=== PATIENT | male | born 1950 | race Caucasian/White ===

== ENCOUNTER 2022-01-18 02:28 | Emergency (ER) | payer MEDICARE ==
[~2022-01-18] VITALS: Ht 172.7 cm; Wt 59.0 kg
[2022-01-18] MEDS ORDERED: NO HOME MEDS (02:37)
[2022-01-18] MEDS: acetaminophen 325mg tablet PO ONE (03:19)
[2022-01-18] MEDS: morphine 4 MG/ML inj SYRINge IV ONE (03:19)
[2022-01-18] MEDS: normal saline 1000ML IV soln IVB ONE (03:19)
[2022-01-18] MEDS: ondansetron/PF 4mg/2ml inj IV ONE (03:19)
[2022-01-18 03:47] LABS: BASOPHILS # (AUTO) 0.1 X10'3 (0-0.2); BASOPHILS % (AUTO) 0.4 % (0-1); EOSINOPHILS % (AUTO) 0.2 % (0-6); HEMATOCRIT 38.5 % (42.0-52.0); LYMPHOCYTES # (AUTO) 0.9 X10'3 (1.1-4.8); LYMPHOCYTES % (AUTO) 6.6 % (21-51); MEAN CORPUSCULAR HEMOGLOBIN 32.1 PG (27.0-31.0); MEAN CORPUSCULAR HGB CONC 33.8 g/dL (33.0-36.5); MEAN CORPUSCULAR VOLUME 94.9 FL (78-98); MEAN PLATELET VOLUME 8.8 FL (7.4-10.4); MONOCYTES # (AUTO) 1.3 X10'3 (0-0.9); MONOCYTES % (AUTO) 9.1 % (2-12); NEUTROPHILS # (AUTO) 11.6 X10'3 (1.8-7.7); NEUTROPHILS % (AUTO) 83.7 % (42-75); PLATELET COUNT 323 X10'3 (140-440); RED BLOOD COUNT 4.06 X10'6 (4.70-6.10); RED CELL DISTRIBUTION WIDTH 13.3 % (11.5-14.5); WHITE BLOOD COUNT 13.8 X10'3 (4.5-11.0)
[2022-01-18 03:51] LABS: ALANINE AMINOTRANSFERASE 50 U/L (12-78); ALBUMIN 3.3 G/DL (3.4-5.0); ALBUMIN/GLOBULIN RATIO 0.7 (1.1-1.5); ALKALINE PHOSPHATASE 136 IU/L (46-116); ANION GAP 7 (8-16); ASPARTATE AMINO TRANSFERASE 26 U/L (10-37); BILIRUBIN,TOTAL 0.8 MG/DL (0.1-1.0); BLOOD UREA NITROGEN 9 MG/DL (7-18); BUN/CREATININE RATIO 8.5 (5.4-32.0); CHLORIDE 99 MMOL/L (99-107); CREATININE 1.06 MG/DL (0.60-1.10); GLUCOSE 140 MG/DL (70-104); LIPASE < 50 U/L (73-393); POTASSIUM 4.3 MMOL/L (3.5-5.1); SODIUM 134 MMOL/L (135-145); eGFR 69 ML/MIN
[2022-01-18] MEDS ORDERED: iohexol 300mg/ml 100ml inj. ONE (04:02)
[2022-01-18 06:05] VITALS: BP 102/75
== END 2022-01-18 06:07 | disposition home or self-care (01) ==
LOC: ER 02:29
DX: R10.31 Right lower quadrant pain (principal); Z98.890 Other specified postprocedural states
CPT/HCPCS: 36415; 74177; 80053; 83690; 85025; 96361; 96374; 96375; 99285; J2270; J2405; J3490; J7030; Q9967

== ENCOUNTER 2022-11-18 11:17 | Inpatient (IN) | payer OTHER, MEDICARE ==
[~2022-11-18] VITALS: Ht 172.7 cm; Wt 48.4 kg
[~2022-11-18 11:17] MED LIST: NO HOME MEDS
[2022-11-18 11:59] LABS: BASOPHILS # (AUTO) 0.1 X10'3 (0-0.2); BASOPHILS % (AUTO) 0.3 % (0-1); EOSINOPHILS % (AUTO) 0 % (0-6); HEMATOCRIT 35.1 % (42.0-52.0); HEMOGLOBIN 11.8 g/dl (14.0-17.9); LYMPHOCYTES # (AUTO) 0.4 X10'3 (1.1-4.8); LYMPHOCYTES % (AUTO) 2.7 % (21-51); MEAN CORPUSCULAR HEMOGLOBIN 31.4 PG (27.0-31.0); MEAN CORPUSCULAR HGB CONC 33.6 g/dL (33.0-36.5); MEAN CORPUSCULAR VOLUME 93.3 FL (78-98); MEAN PLATELET VOLUME 8.2 FL (7.4-10.4); MONOCYTES # (AUTO) 0.9 X10'3 (0-0.9); MONOCYTES % (AUTO) 5.9 % (2-12); NEUTROPHILS # (AUTO) 14.3 X10'3 (1.8-7.7); NEUTROPHILS % (AUTO) 91.1 % (42-75); PLATELET COUNT 297 X10'3 (140-440); RED BLOOD COUNT 3.76 X10'6 (4.70-6.10); RED CELL DISTRIBUTION WIDTH 14.4 % (11.5-14.5); WHITE BLOOD COUNT 15.7 X10'3 (4.5-11.0)
[2022-11-18 12:04] LABS: BILIRUBIN,URINE MODERATE (Neg); CLARITY,URINE SLIGHTLY CLOUDY (Clear); GLUCOSE, URINE NEGATIVE (Neg); KETONES,URINE 15 mg/dl (Neg); LEUKOCYTE ESTERASE ,URINE NEGATIVE (Neg); NITRITES, URINE NEGATIVE (Neg); OCCULT BLOOD,URINE TRACE-INTACT (Neg); PROTEIN,URINE TRACE mg/dl (Neg)
[2022-11-18 12:08] LABS: ALANINE AMINOTRANSFERASE 84 U/L (12-78); ALBUMIN 3.5 G/DL (3.4-5.0); ALBUMIN/GLOBULIN RATIO 0.7 (1.1-1.5); ALKALINE PHOSPHATASE 316 IU/L (46-116); ANION GAP 7 (8-16); ASPARTATE AMINO TRANSFERASE 84 U/L (10-37); BILIRUBIN,TOTAL 2.9 MG/DL (0.1-1.0); BLOOD UREA NITROGEN 10 MG/DL (7-18); BUN/CREATININE RATIO 9.8 (10.0-20.0); CALCIUM 9.7 MG/DL (8.5-10.1); CHLORIDE 98 MMOL/L (99-107); CREATININE 1.02 MG/DL (0.60-1.10); GLUCOSE 163 MG/DL (70-104); POTASSIUM 4.3 MMOL/L (3.5-5.1); SODIUM 130 MMOL/L (135-145); TOTAL CARBON DIOXIDE 25.1 MMOL/L (24-32); TOTAL PROTEIN 8.6 G/DL (6.4-8.2); eCRCL 46 ML/MIN; eGFR 72 ML/MIN
[2022-11-18 12:21] LABS: COLOR,URINE DARK YELLOW (Yellow); UA COLLECTION TYPE CLN CATCH MIDSTREAM
[2022-11-18 12:23] LABS: BACTERIA,URINE FEW /HPF (Neg); MUCUS STRANDS MODERATE /LPF (Neg); RBC,URINE 0-2 /HPF (0-2); WBC,URINE 0-4 /HPF (0-4)
[2022-11-18 12:24] LABS: SQUAMOUS EPITHELIAL CELL,UR MODERATE /LPF (FEW)
[2022-11-18 12:55] LABS: LIPASE 14485 U/L (73-393)
[2022-11-18] MEDS ORDERED: ringers solution, lacted 1,000 ML IV ONE ×2 (18:20)
[2022-11-18] MEDS ORDERED: ondansetron/PF 4mg/2ml inj IV ONE (18:25)
[2022-11-18] MEDS ORDERED: HYDROmorphone 1 mg/ml syringe IV ONE (18:25)
[2022-11-18] MEDS ORDERED: iohexol 300mg/ml 100ml inj. ONE (18:34)
[2022-11-19] MEDS ORDERED: famotidine/PF 10 mg/ml inj IV ONE (03:05)
[2022-11-19] MEDS ORDERED: piperacillin/tazo 3.375gm/50ml 50 ML IV SCH (03:10)
[2022-11-19] MEDS ORDERED: piperacillin/tazo 3.375gm/50ml 50 ML IV ONE (03:10)
[2022-11-19] MEDS ORDERED: morphine 2 MG/ML inj. syringe IV PRN ×2 (03:45)
[2022-11-19] MEDS ORDERED: mag hydrox/Alum hydrox/simeth 30ml oral suspension PO PRN (03:45)
[2022-11-19] MEDS: normal saline 1000ml 1,000 ML IV SCH ×3 (03:45→19:57)
[2022-11-19] MEDS ORDERED: ondansetron/PF 4mg/2ml inj IV PRN (03:45)
[2022-11-19] MEDS ORDERED: magnesium 2GM in 50ml NS 50 ML IV PRN (03:45)
[2022-11-19] MEDS ORDERED: potassium Cl 40MEQ/1/2NS 520ml 520 ML IV PRN (03:45)
[2022-11-19] MEDS ORDERED: acetaminophen 325mg tablet PO PRN (03:45)
[2022-11-19] MEDS ORDERED: magnesium 4gm in 100ml NS 100 ML IV PRN (03:45)
[2022-11-19] MEDS ORDERED: potassium Cl 20 mEq SR tablet PO PRN (03:45)
[2022-11-19] MEDS ORDERED: magnesium hydroxide 30ml (MOM) UD suspension PO PRN (03:45)
[2022-11-19] MEDS ORDERED: magnesium Cl slow-release 64mg tablet PO PRN (03:45)
[2022-11-19] MEDS: K and/or MAG REPLACEMENT MC SCH ×2 (08:00→20:00)
[2022-11-19] MEDS: docusate sod 100mg capsule PO SCH ×2 (08:10→20:03)
[2022-11-19 08:13] LABS: MAGNESIUM 1.6 MG/DL (1.5-2.4); POTASSIUM 3.6 MMOL/L (3.5-5.1)
--- NOTE | 2022-11-19 08:44 | NUR ---
MRI CALLED AND WANTED MORE INFORMATION ON THE PT'S SHUNT. PT DOESNT KNOW MUCH ABOUT IT. PT SAID IT WAS DONE HERE, PT STATES IT WAS DONE 45 YEARS AGO. FORWARDED THE MESSAGE TO MRI. MRI SAID THAT THEY WOULD LOOK MORE INTO IT ON THERE END.
[2022-11-19 11:30] VITALS: BP 104/56; PULSE 59; RESP 15; TEMP 97.7; O2SAT 96
--- NOTE | 2022-11-19 12:23 | NUR ---
Malnutrition consult: Pt reports 2-13 lb wt loss with decreased appetite/PO intake per malnutrition risk screen with RN. Current BMI is 16.2 using scaled weight of 48.4 kg. Per H&P pt presented with c/o abdominal pain and admit for gall stone pancreatitis, currently NPO for possible cholecystectomy. Pt just admitted so information in EMR is limited at this time. No edema per H&P. Further assessment of nutrition status pending at this time until more information is able to be obtained. Addendum: 11/19/22 at [address] Amended: Links added.
[2022-11-19] MEDS: piperacillin/tazo 3.375gm/50ml 50 ML IV SCH ×2 (12:51→19:53)
[2022-11-19 18:00] VITALS: BP 121/66; PULSE 62; RESP 18; TEMP 97.5; O2SAT 99
--- NOTE | 2022-11-19 18:38 | NUR ---
Problems reprioritized. Patient report given, questions answered & plan of care reviewed with HANNAH Galeano.
--- NOTE | 2022-11-19 18:40 | NUR ---
Patient in room ORTHO 4012. I have received report from MARILY PARK and had the opportunity to ask questions and assume patient care.
[2022-11-19 20:00] VITALS: RESP 18; O2SAT 99
[2022-11-19 22:00] VITALS: BP 108/54; PULSE 86; RESP 16; TEMP 98; O2SAT 97
[2022-11-20] MEDS: piperacillin/tazo 3.375gm/50ml 50 ML IV SCH ×3 (03:40→19:23)
[2022-11-20 06:00] VITALS: BP 121/66; PULSE 62; RESP 18; TEMP 97.5; O2SAT 99
--- NOTE | 2022-11-20 06:35 | NUR ---
Problems reprioritized. Patient report given, questions answered & plan of care reviewed with MARILY YOUNG.
--- NOTE | 2022-11-20 06:39 | NUR ---
Patient in room ORTHO 4012. I have received report from HANNAH Galeano and had the opportunity to ask questions and assume patient care.
[2022-11-20 07:06] LABS: BASOPHILS % (AUTO) 0.2 % (0-1); EOSINOPHILS # (AUTO) 0.1 X10'3 (0-0.9); EOSINOPHILS % (AUTO) 0.6 % (0-6); HEMATOCRIT 26.8 % (42.0-52.0); HEMOGLOBIN 8.9 g/dl (14.0-17.9); LYMPHOCYTES # (AUTO) 0.9 X10'3 (1.1-4.8); LYMPHOCYTES % (AUTO) 7.7 % (21-51); MEAN CORPUSCULAR HEMOGLOBIN 31.5 PG (27.0-31.0); MEAN CORPUSCULAR HGB CONC 33.4 g/dL (33.0-36.5); MEAN CORPUSCULAR VOLUME 94.4 FL (78-98); MEAN PLATELET VOLUME 9.2 FL (7.4-10.4); MONOCYTES % (AUTO) 8.1 % (2-12); NEUTROPHILS # (AUTO) 9.8 X10'3 (1.8-7.7); NEUTROPHILS % (AUTO) 83.4 % (42-75); PLATELET COUNT 175 X10'3 (140-440); RED BLOOD COUNT 2.84 X10'6 (4.70-6.10); RED CELL DISTRIBUTION WIDTH 14.2 % (11.5-14.5); WHITE BLOOD COUNT 11.7 X10'3 (4.5-11.0)
[2022-11-20 07:35] LABS: ALANINE AMINOTRANSFERASE 43 U/L (12-78); ALBUMIN 2.3 G/DL (3.4-5.0); ALBUMIN/GLOBULIN RATIO 0.6 (1.1-1.5); ALKALINE PHOSPHATASE 139 IU/L (46-116); ANION GAP 12 (8-16); ASPARTATE AMINO TRANSFERASE 29 U/L (10-37); BILIRUBIN,TOTAL 0.9 MG/DL (0.1-1.0); BLOOD UREA NITROGEN 14 MG/DL (7-18); BUN/CREATININE RATIO 14.3 (10.0-20.0); CALCIUM 8.3 MG/DL (8.5-10.1); CHLORIDE 102 MMOL/L (99-107); CREATININE 0.98 MG/DL (0.60-1.10); LIPASE 979 U/L (73-393); MAGNESIUM 1.7 MG/DL (1.5-2.4); POTASSIUM 3.3 MMOL/L (3.5-5.1); SODIUM 134 MMOL/L (135-145); TOTAL CARBON DIOXIDE 20.2 MMOL/L (24-32); TOTAL PROTEIN 6.3 G/DL (6.4-8.2); eCRCL 48 ML/MIN; eGFR 76 ML/MIN
[2022-11-20 07:39] LABS: GLUCOSE 39 MG/DL (70-104)
[2022-11-20] MEDS ORDERED: DEXTROSE 15 GM of carb/4 tabs (each vial/BOTTLE has 4 tablets) PO PRN ×2 (07:45)
[2022-11-20] MEDS ORDERED: dextrose 5%-1/4 normal saline 1,000 ML IV SCH (07:45)
[2022-11-20] MEDS ORDERED: glucagon, human recombinant 1mg kit SUBCUT PRN (07:45)
[2022-11-20] MEDS ORDERED: dextrose 50%-water 50ml dispensing syringe IV PRN ×2 (07:45)
[2022-11-20 08:00] VITALS: RESP 18; O2SAT 100
[2022-11-20] MEDS: K and/or MAG REPLACEMENT MC SCH ×2 (08:00→20:00)
[2022-11-20] MEDS: docusate sod 100mg capsule PO SCH ×2 (08:05→19:53)
[2022-11-20] MEDS: dextrose 5%-1/2 normal saline 1,000 ML IV SCH ×2 (08:06→19:53)
[2022-11-20 08:15] LABS: BILIRUBIN,DIRECT 0.4 MG/DL (0-0.3)
[2022-11-20 10:00] VITALS: BP 120/50; PULSE 46; RESP 14; TEMP 97.9; O2SAT 99
--- NOTE | 2022-11-20 13:15 | NUR ---
F/u for malnutrition consult: Pt seen at bedside, reports UBW 120 lbs and states he believes he has lost about four lbs in the last week or so stating ABW is probably 116 lbs, though this is not scaled. Current documented wt is 106 lbs though pt does not actually appear to be this thin. Pt reports no PO intake x 4 days for unknown reasons. Pt remains NPO at this time, per SALES REPRESENTATIVE [employer] physician is going to consult with surgeon regarding possible surgery. Pt endorsing a great appetite stating he is really hungry. No documented decrease in muscle strength or edema. Pt currently lacks a minimum of two criteria for malnutrition. Pt denies food allergies, food preferences, or difficulty chewing or swallowing. Recommend advancing diet MARIO if pt not going to OR, d/w SALES REPRESENTATIVE [employer]. Pt provided with RD contact information and encouraged to reach out if needed. Will continue to follow and monitor s/s of malnutrition and need for nutrition intervention. Addendum: 11/20/22 at [address] Amended: Links added.
--- NOTE | 2022-11-20 14:42 | NUR ---
PRESSURE WASHER documentation: I have reviewed and agree with all interventions, assessments performed and documented by Uli Mattson LVN.
[2022-11-20] MEDS: potassium Cl 20 mEq SR tablet PO PRN ×2 (17:40→22:19)
[2022-11-20 18:00] VITALS: BP 116/52; PULSE 54; RESP 14; TEMP 97.8; O2SAT 100
--- NOTE | 2022-11-20 18:33 | NUR ---
Problems reprioritized. Patient report given, questions answered & plan of care reviewed with XAVIER Montano.
[2022-11-20 22:00] VITALS: BP 110/58; PULSE 58; RESP 15; TEMP 98.3; O2SAT 98
[2022-11-21] VITALS (7 sets, daily range): BP systolic 103–125; BP diastolic 54–65; PULSE 48–56; RESP 16–18; TEMP 97.9–98.4; O2SAT 96–100
--- NOTE | 2022-11-21 02:20 | NUR ---
ENGINEER TECHNICAL STAFF documentation: I have reviewed and agree with assessment performed and documented by DEANNE Maravilla
[2022-11-21] MEDS: potassium Cl 20 mEq SR tablet PO PRN (02:36)
[2022-11-21] MEDS: piperacillin/tazo 3.375gm/50ml 50 ML IV SCH ×3 (03:57→20:58)
--- NOTE | 2022-11-21 06:36 | NUR ---
I have received report from Dusty PARK and had the opportunity to ask questions and assume patient care.
[2022-11-21] MEDS: docusate sod 100mg capsule PO SCH ×2 (07:48→20:00)
[2022-11-21] MEDS: K and/or MAG REPLACEMENT MC SCH ×2 (08:00→20:00)
--- NOTE | 2022-11-21 17:17 | NUR ---
Student documentation reviewed by instructor.
[2022-11-21] MEDS: dextrose 5%-1/2 normal saline 1,000 ML IV SCH (17:31)
[2022-11-22] VITALS (16 sets, daily range): BP systolic 110–157; BP diastolic 56–94; PULSE 50–83; RESP 15–18; TEMP 97.9–98.7; O2SAT 90–100
[2022-11-22] MEDS: piperacillin/tazo 3.375gm/50ml 50 ML IV SCH ×3 (03:44→22:14)
--- NOTE | 2022-11-22 06:32 | NUR ---
Report received from NOC Shift.
--- NOTE | 2022-11-22 07:39 | NUR ---
Dr Silveira rounded and stated pt can have a regular breakfast this morning then NPO d/t surgery will be @ approx 1700 today. Orders placed in MT.
[2022-11-22] MEDS: docusate sod 100mg capsule PO SCH ×2 (07:51→20:00)
[2022-11-22] MEDS: K and/or MAG REPLACEMENT MC SCH ×2 (08:00→20:00)
[2022-11-22 09:52] LABS: PROTHROMBIN TIME 10.7 SECONDS (9.0-12.0)
[2022-11-22 09:59] LABS: ALBUMIN 2.4 G/DL (3.4-5.0); ALBUMIN/GLOBULIN RATIO 0.6 (1.1-1.5); ALKALINE PHOSPHATASE 112 IU/L (46-116); BLOOD UREA NITROGEN 2 MG/DL (7-18); CALCIUM 8.6 MG/DL (8.5-10.1); CHLORIDE 100 MMOL/L (99-107); CREATININE 1.02 MG/DL (0.60-1.10); PRE OP ALT 33 U/L (30-65); PRE OP ANION GAP 2 (8-16); PRE OP AST 14 U/L (10-37); PRE OP BILIRUB, TOTAL 0.4 MG/DL (0.0-1.0); PRE OP GLUCOSE 90 MG/DL (70-104); PRE OP POTASSIUM 3.5 MMOL/L (3.4-5.1); TOTAL CARBON DIOXIDE 28.2 MMOL/L (24-32); TOTAL PROTEIN 6.7 G/DL (6.4-8.2); eCRCL 46 ML/MIN; eGFR 72 ML/MIN
[2022-11-22 10:01] LABS: PRE OP SODIUM 130 MMOL/L (135-145)
[2022-11-22] MEDS: normal saline 1000ml 1,000 ML IV SCH ×2 (10:56→20:20)
[2022-11-22] MEDS ORDERED: INDOCYANINE GREEN 25 MG/10 ML VIAL IV ONE (15:00)
--- NOTE | 2022-11-22 16:26 | NUR ---
Patient disconnected himself from his IVF and did not let staff know. IVFs were found dripping on the floor from the IV pole. Patient states "I may have disconnected myself". Educated patient not to disconnect his fluids going forward.
[2022-11-22] MEDS ORDERED: ondansetron/PF 4mg/2ml inj IV PRN (17:50)
[2022-11-22] MEDS ORDERED: HYDROmorphone/PF 0.2 MG/ML SYRINGE IV PRN ×2 (17:50→20:35)
[2022-11-22] MEDS ORDERED: normal saline 1000ml 1,000 ML IV ONE (17:50)
[2022-11-22] MEDS ORDERED: morphine 2 MG/ML inj. syringe IV PRN ×2 (17:50→20:35)
[2022-11-22] MEDS ORDERED: fentaNYL/PF 50MCG/1 ML 2ML syringe ONE (18:01)
--- NOTE | 2022-11-22 18:02 | NUR ---
Patient off the unit to OR
[2022-11-22] MEDS ORDERED: propofol inj 20 ML IV ONE (18:03)
[2022-11-22] MEDS ORDERED: LIDOcaine 2% (20mg/ml) 5ml vial ONE (18:03)
[2022-11-22] MEDS ORDERED: BUPIVAcaine/PF 2.5 mg/ml (0.25%) 30ml vial ONE (18:14)
[2022-11-22] MEDS ORDERED: LIDOcaine 1% 30ml preserv. free vial ONE (18:14)
--- NOTE | 2022-11-22 18:14 | NUR ---
Report given to Lucretia YOUNG NOC shift.
--- NOTE | 2022-11-22 18:32 | NUR ---
Patient in room ORTH[facility] 4011. I have received report from HANNAH Bellamy and had the opportunity to ask questions and assume patient care.
[2022-11-22] MEDS ORDERED: sevoflurane 250ml liquid IH ONE (18:40)
[2022-11-22] MEDS ORDERED: cefazolin 2gm/D5W 100ml IV.soln IV ONE (18:40)
[2022-11-22] MEDS ORDERED: BUPIVAcaine/PF 2.5 mg/ml (0.25%) 30ml vial IJ ONE (19:00)
[2022-11-22] MEDS ORDERED: LIDOcaine 1% 30ml preserv. free vial IJ ONE (19:00)
[2022-11-22] MEDS ORDERED: sugammadex 200mg/2ml injection IV ONE (19:02)
[2022-11-22] MEDS ORDERED: rocuronium 10mg/ml inj IV ONE (19:26)
[2022-11-22] MEDS ORDERED: ondansetron/PF 4mg/2ml inj ONE (19:26)
[2022-11-22] MEDS ORDERED: dexamethasone sod phosphate 4mg/ml inj. ONE (19:26)
[2022-11-22] MEDS ORDERED: naloxone 0.4 mg/ml inj IV PRN (20:20)
[2022-11-22] MEDS: HYDROmorph/NS 0.2 mg/ml PCA 100 ML IV SCH ×3 (20:58→23:00)
--- NOTE | 2022-11-22 21:14 | NUR ---
Received from OR via , accompanied by Anesthesiologist DR SABILLON and report given by Anesthesiolgist. VSS. ON MASK AT 10 LITERS. IV 20G IN R HAND. ISLAND MID ADB WITH TAMRA DRAIN ON R SIDE
--- NOTE | 2022-11-22 21:14 | NUR ---
MEETS DISCHARGE CRITERIA. IV INTACT. CALLED REPORT TO FRANCOIS YOUNG TOOK TOOK PATIENT TO FLOOR, NURSE AT BEDSIDE.
--- NOTE | 2022-11-22 21:15 | NUR ---
Patient in room ORTH[facility] 4011. I have received report from ARPITA KENNEL MANAGER DOG TRACK and had the opportunity to ask questions and assume patient care.
[2022-11-22 21:22] LABS: ISTAT ANION GAP 15 (8-12); ISTAT BUN < 3 mg/dL (7-18); ISTAT CL 99 mmol/L (99-107); ISTAT CREATININE 0.9 mg/dL (0.8-1.3); ISTAT GLUCOSE 133 mg/dL (70-104); ISTAT HGB 13.3 g/dl (14.0-17.9); ISTAT Hct 39 %PCV (42-52); ISTAT IONIZED CALCIUM 1.18 mmol/L (1.03-1.32); ISTAT K 3.3 mmol/L (3.5-5.1); ISTAT NA 137 mmol/L (135-145); ISTAT TOTAL CO2 23 mmol/L (24-32); ISTAT eGFR 83 ML/MIN; POC BUN/CREATININE RATIO 3.3 (5.4-32.0)
--- NOTE | 2022-11-22 22:00 | NUR ---
PT. PULLED OFF DRESSING. APPLIED NEW DRESSING AND EDUCATED PT ON IMPORTANCE OF LEAVING DRESSING INTACT.
[2022-11-23] VITALS (8 sets, daily range): BP systolic 124–157; BP diastolic 64–80; PULSE 66–74; RESP 15–20; TEMP 98.2–98.6; O2SAT 92–96
[2022-11-23] MEDS: HYDROmorph/NS 0.2 mg/ml PCA 100 ML IV SCH ×6 (01:00→11:00)
--- NOTE | 2022-11-23 05:05 | NUR ---
PT. PULLED OFF DRESSING. APPLIED NEW DRESSING AND EDUCATED PT ON IMPORTANCE OF LEAVING DRESSING ALONE. WILL CONTINUE TO MONITOR.
--- NOTE | 2022-11-23 06:16 | NUR ---
Problems reprioritized. Patient report given, questions answered & plan of care reviewed with HANNAH AMADOR.
[2022-11-23] MEDS: normal saline 1000ml 1,000 ML IV SCH ×2 (06:45→16:40)
[2022-11-23] MEDS: piperacillin/tazo 3.375gm/50ml 50 ML IV SCH ×3 (07:00→16:36)
[2022-11-23] MEDS: K and/or MAG REPLACEMENT MC SCH ×3 (08:00→20:00)
[2022-11-23] MEDS ORDERED: docusate sod 100mg capsule PO SCH (08:00)
[2022-11-23] MEDS ORDERED: sennosides/docusate sodium tablet PO SCH (08:00)
--- NOTE | 2022-11-23 08:15 | NUR ---
attempted to call dr hutchins about abnormal k, new labs, and double stool softener orders. no response.
--- NOTE | 2022-11-23 08:20 | NUR ---
waiting on pharmacy to send up Zosyn to be hung
[2022-11-23] MEDS ORDERED: potassium Cl 20 mEq SR tablet PO PRN (08:30)
[2022-11-23] MEDS ORDERED: potassium Cl 40MEQ/1/2NS 520ml 520 ML IV PRN ×2 (08:30)
--- NOTE | 2022-11-23 09:45 | NUR ---
pt iv went bad unable to start zosyn right now
[2022-11-23 09:49] LABS: BASOPHILS % (AUTO) 0.1 % (0-1); EOSINOPHILS % (AUTO) 0 % (0-6); HEMOGLOBIN 9.9 g/dl (14.0-17.9); LYMPHOCYTES # (AUTO) 0.7 X10'3 (1.1-4.8); MEAN CORPUSCULAR HEMOGLOBIN 31.4 PG (27.0-31.0); PLATELET COUNT 259 X10'3 (140-440); RED CELL DISTRIBUTION WIDTH 13.8 % (11.5-14.5)
[2022-11-23 09:52] LABS: HEMATOCRIT 29.4 % (42.0-52.0); LYMPHOCYTES % (AUTO) 6.1 % (21-51); MEAN CORPUSCULAR HGB CONC 33.6 g/dL (33.0-36.5); MEAN CORPUSCULAR VOLUME 93.3 FL (78-98); MONOCYTES # (AUTO) 1.1 X10'3 (0-0.9); NEUTROPHILS # (AUTO) 9.5 X10'3 (1.8-7.7); NEUTROPHILS % (AUTO) 83.8 % (42-75); RED BLOOD COUNT 3.15 X10'6 (4.70-6.10); WHITE BLOOD COUNT 11.3 X10'3 (4.5-11.0)
[2022-11-23] MEDS: docusate sod 100mg capsule PO SCH ×2 (09:52→20:46)
[2022-11-23 10:10] LABS: ALANINE AMINOTRANSFERASE 30 U/L (12-78); ALBUMIN 2.4 G/DL (3.4-5.0); ALBUMIN/GLOBULIN RATIO 0.5 (1.1-1.5); ALKALINE PHOSPHATASE 100 IU/L (46-116); ANION GAP 5 (8-16); ASPARTATE AMINO TRANSFERASE 25 U/L (10-37); BILIRUBIN,TOTAL 0.4 MG/DL (0.1-1.0); BLOOD UREA NITROGEN 5 MG/DL (7-18); CALCIUM 8.4 MG/DL (8.5-10.1); CHLORIDE 99 MMOL/L (99-107); GLUCOSE 100 MG/DL (70-104); POTASSIUM 3.3 MMOL/L (3.5-5.1); SODIUM 131 MMOL/L (135-145); TOTAL CARBON DIOXIDE 27.2 MMOL/L (24-32); TOTAL PROTEIN 6.8 G/DL (6.4-8.2); eCRCL 47 ML/MIN; eGFR 74 ML/MIN
[2022-11-23] MEDS: potassium Cl 20 mEq SR tablet PO PRN ×3 (10:23→20:46)
--- NOTE | 2022-11-23 11:00 | NUR ---
still unable to get an iv having another nurse try. pharmacy stated dose would need to be skipped since dose will be given too late and go on to give next dose at 1500.
[2022-11-23] MEDS ORDERED: PCA WASTE DOCUMENTATION 1 MG ML MC SCH (11:40)
--- NOTE | 2022-11-23 12:00 | NUR ---
paged picc for an iv that needs to be placed on pt
[2022-11-23] MEDS: oxyCODONE/APAP 5-325mg tablet PO PRN (13:23)
--- NOTE | 2022-11-23 18:50 | NUR ---
Student documentation: I have reviewed all interventions, assessments performed and documented by Jessika Molina with [facility]. Student Medication Administration: For this medication-pass time frame [id number], all medication were reviewed, dispensed, administered and documented per hospital policy by Jessika Molina with [facility].
--- NOTE | 2022-11-23 18:53 | NUR ---
Problems reprioritized. Patient report given, questions answered & plan of care reviewed with kelsy ortiz.
[2022-11-24] MEDS: piperacillin/tazo 3.375gm/50ml 50 ML IV SCH ×4 (00:04→22:57)
[2022-11-24 06:00] VITALS: BP 131/76; PULSE 62; RESP 17; TEMP 98.7; O2SAT 98
--- NOTE | 2022-11-24 06:29 | NUR ---
Problems reprioritized. Patient report given, questions answered & plan of care reviewed with HANNAH GROVER.
--- NOTE | 2022-11-24 06:36 | NUR ---
Patient in room ORTHO 4011. I have received report from JOHANNE YOUNG and had the opportunity to ask questions and assume patient care.
[2022-11-24 08:00] VITALS: RESP 17; O2SAT 98
[2022-11-24] MEDS: oxyCODONE/APAP 5-325mg tablet PO PRN (08:00)
[2022-11-24] MEDS: K and/or MAG REPLACEMENT MC SCH ×4 (08:00→20:00)
[2022-11-24] MEDS: docusate sod 100mg capsule PO SCH ×2 (08:00→19:50)
[2022-11-24 11:00] VITALS: BP 141/70; PULSE 77; RESP 14; TEMP 98.1; O2SAT 100
[2022-11-24 13:04] LABS: BASOPHILS % (AUTO) 0.3 % (0-1); EOSINOPHILS % (AUTO) 0.4 % (0-6); HEMATOCRIT 31.3 % (42.0-52.0); HEMOGLOBIN 10.4 g/dl (14.0-17.9); LYMPHOCYTES # (AUTO) 1.2 X10'3 (1.1-4.8); MEAN CORPUSCULAR HGB CONC 33.3 g/dL (33.0-36.5); MEAN PLATELET VOLUME 8.3 FL (7.4-10.4); MONOCYTES # (AUTO) 1.3 X10'3 (0-0.9); MONOCYTES % (AUTO) 13.2 % (2-12); NEUTROPHILS # (AUTO) 7.5 X10'3 (1.8-7.7); NEUTROPHILS % (AUTO) 74.1 % (42-75); PLATELET COUNT 264 X10'3 (140-440); RED BLOOD COUNT 3.37 X10'6 (4.70-6.10); RED CELL DISTRIBUTION WIDTH 13.6 % (11.5-14.5); WHITE BLOOD COUNT 10.2 X10'3 (4.5-11.0)
[2022-11-24 13:09] LABS: ALANINE AMINOTRANSFERASE 23 U/L (12-78); ALBUMIN 2.4 G/DL (3.4-5.0); ALBUMIN/GLOBULIN RATIO 0.5 (1.1-1.5); ALKALINE PHOSPHATASE 97 IU/L (46-116); ANION GAP 5 (8-16); ASPARTATE AMINO TRANSFERASE 23 U/L (10-37); BILIRUBIN,TOTAL 0.5 MG/DL (0.1-1.0); BLOOD UREA NITROGEN 4 MG/DL (7-18); BUN/CREATININE RATIO 4.3 (10.0-20.0); CALCIUM 8.8 MG/DL (8.5-10.1); CHLORIDE 100 MMOL/L (99-107); CREATININE 0.93 MG/DL (0.60-1.10); GLUCOSE 91 MG/DL (70-104); POTASSIUM 3.8 MMOL/L (3.5-5.1); SODIUM 131 MMOL/L (135-145); TOTAL CARBON DIOXIDE 25.6 MMOL/L (24-32); TOTAL PROTEIN 6.8 G/DL (6.4-8.2); eCRCL 51 ML/MIN; eGFR 80 ML/MIN
[2022-11-24] MEDS: normal saline 1000ml 1,000 ML IV SCH (16:14)
[2022-11-24 16:25] VITALS: RESP 16; O2SAT 98
--- NOTE | 2022-11-24 16:40 | NUR ---
RE: 4011B, [place], per richelle Marin for patient to discharge, needs f/u in one week to remove sally Sylvie [phone]
[2022-11-24] MEDS ORDERED: IBUP-1985 PO (16:45)
[2022-11-24] MEDS ORDERED: ACET-1008 PO (16:45)
--- NOTE | 2022-11-24 17:47 | NUR ---
per dr cano, pt is ok to be DC'd home and adriana drain can be taken out.
--- NOTE | 2022-11-24 17:50 | NUR ---
unable to get a number for the pts , the number in chart does not work. i called and left a message with daughter to see if someone else can pick him up.
[2022-11-24 18:00] VITALS: BP 136/73; PULSE 58; RESP 16; TEMP 98.2; O2SAT 97
--- NOTE | 2022-11-24 18:25 | NUR ---
Problems reprioritized. Patient report given, questions answered & plan of care reviewed with nikhil lester.
--- NOTE | 2022-11-24 18:35 | NUR ---
Report received from Haroldo YOUNG
[2022-11-24 22:00] VITALS: BP 114/72; PULSE 114; RESP 16; TEMP 98.3; O2SAT 97
--- NOTE | 2022-11-24 22:00 | NUR ---
unable to reach family to arrange for discharge at this time; unable to safely discharge pt as he does not have means to contact family, or access to his home if discharged at this time. Dr. Gudino (night hospitalist), notified at approx 2200. Pt will continue to be monitored overnight until discharge can be safely arranged in the AM
--- NOTE | 2022-11-25 02:28 | NUR ---
Student documentation: I have reviewed and agree with physical assessment documented by Dusty Mendoza Lvn except for what I charted. .
[2022-11-25 07:00] VITALS: BP 133/74; PULSE 76; RESP 16; TEMP 98.3; O2SAT 98
[2022-11-25] MEDS: piperacillin/tazo 3.375gm/50ml 50 ML IV SCH (07:23)
[2022-11-25] MEDS: K and/or MAG REPLACEMENT MC SCH ×2 (07:39→07:40)
[2022-11-25] MEDS: docusate sod 100mg capsule PO SCH (07:52)
[2022-11-25] MEDS: normal saline 1000ml 1,000 ML IV SCH (07:52)
[2022-11-25 08:00] VITALS: RESP 16; O2SAT 98
--- NOTE | 2022-11-25 09:15 | NUR ---
Contacted , informed of discharge status, will be here to pick him up this morning.
--- NOTE | 2022-11-25 10:26 | NUR ---
DIALYSIS SOCIAL WORKER documentation: I have reviewed and agree with all interventions, assessments performed and documented by Veronica Ann LVN.
--- NOTE | 2022-11-25 11:00 | NUR ---
Patient discharged home with spouse via POV. Personal belongings sent with, piv d/c'd with tip in tact. Patient alert and appropriate at the time of discharge.
== END 2022-11-25 11:00 | disposition home or self-care (01) | DRG 414 ==
LOC: ER 11:17 → ED HOLD 11-19 03:46 → ORTHO 4S 11-19 11:28 → UNDODISIN 11-20 17:10 → ORTHO 4S 11-21 21:02
PROVIDERS: ADMIT Internal Medicine; ATTEND Internal Medicine
PROC: BW211ZZ Computerized Tomography (CT Scan) of Abdomen and Pelvis using Low Osmolar Contrast (ICD-10-PCS; principal; 2022-11-18)
PROC: 0FT40ZZ Resection of Gallbladder, Open Approach (ICD-10-PCS; 2022-11-22)
PROC: 0FJ44ZZ Inspection of Gallbladder, Percutaneous Endoscopic Approach (ICD-10-PCS; 2022-11-22)
PROC: 0DNU4ZZ Release Omentum, Percutaneous Endoscopic Approach (ICD-10-PCS; 2022-11-22)
DX: K80.00 Calculus of gallbladder with acute cholecystitis without obstruction (principal); K85.10 Biliary acute pancreatitis without necrosis or infection; E87.1 Hypo-osmolality and hyponatremia; D64.9 Anemia, unspecified; E16.2 Hypoglycemia, unspecified; E87.6 Hypokalemia; F17.200 Nicotine dependence, unspecified, uncomplicated; K66.0 Peritoneal adhesions (postprocedural) (postinfection); Z53.31 Laparoscopic surgical procedure converted to open procedure; Z98.2 Presence of cerebrospinal fluid drainage device
CPT/HCPCS: 99285; Z7506; Z7508; 36415; 71045; 74177; 76700; 80047; 80053; 81001; 82248; 82948; 83690; 83735; 84132; 84145; 85025; 85610; 87081; 93005; A4215; A4618; A6258; A6402; A6449; A7000; G0378; J0690; J1100; J1170; J2270; J2405; J2543; J2704; J3010; J3490; J7030; J7040; J7120; Q9967